=== PATIENT | male | born 1985 | race Caucasian/White ===

== ENCOUNTER 2018-04-16 18:46 | Emergency (ER) | payer MEDICAID ==
[~2018-04-16] VITALS: Ht 170.2 cm; Wt 74.8 kg
[2018-04-16] MEDS ORDERED: Monodox100 MG PO (19:59)
[2018-04-16] MEDS ORDERED: Nystop60 GM TOP (20:01)
[2018-04-16 20:05] LABS: Calcium, Ionized (POC) 1.19 mmol/L (1.10-1.46); Chloride (POC) 104 mmol/L (98-108); Creatinine (POC) 0.7 mg/dL (0.8-1.3); Glucose (ISTAT POC) 98 mg/dL (70-99); Hemoglobin (POC) 13.6 g/dL (13.5-17.5); Potassium (POC) 3.8 mmol/L (3.5-5.5); Sodium (POC) 144 mmol/L (135-148); Total CO2 (POC) 27 mmol/L (21-32)
== END 2018-04-16 20:23 | disposition home or self-care (01) ==
LOC: ER 18:46
PROVIDERS: Physician Assistant
DX: L03.115 Cellulitis of right lower limb (principal); B37.49 Other urogenital candidiasis; F17.210 Nicotine dependence, cigarettes, uncomplicated
CPT/HCPCS: 80047; 85014; 99283

== ENCOUNTER 2018-04-17 02:44 | Emergency (ER) | payer MEDICAID ==
[~2018-04-17] VITALS: Ht 170.2 cm; Wt 74.8 kg
[~2018-04-17 02:44] MED LIST: Monodox100 MG PO; Nystop60 GM TOP
== END 2018-04-17 05:00 | disposition home or self-care (01) ==
LOC: ER 02:44
DX: B35.6 Tinea cruris (principal); M79.604 Pain in right leg; F17.210 Nicotine dependence, cigarettes, uncomplicated; Z79.899 Other long term (current) drug therapy
CPT/HCPCS: 99283